=== PATIENT | female | born 1980 | race Hispanic/Latino ===

== ENCOUNTER → 2018-03-24 | Outpatient (REF) | payer OTHER | LOC: M SFHCWAGY 09:00 | PROVIDERS: ATTEND Family Medicine | DX: Z12.4 Encounter for screening for malignant neoplasm of cervix (principal) | CPT/HCPCS: G0123; G0463 ==

== ENCOUNTER → 2019-08-23 | Outpatient (REF) | payer OTHER | LOC: M SFHCWAGY 18:02 | PROVIDERS: ATTEND Nurse Practitioner Women's Health | DX: Z12.4 Encounter for screening for malignant neoplasm of cervix (principal) | CPT/HCPCS: 87624; G0123; G0463 ==